=== PATIENT | male | born 1955 | race Caucasian/White ===

== ENCOUNTER 2021-02-06 10:06 | Emergency (ER) | payer MEDICARE ==
[2021-02-06] MEDS ORDERED: Lactated Ringers 1,000 ML IV SCH (11:15)
--- NOTE | 2021-02-06 11:25 | EDM.PDOC ---
ED HPI GENERAL MEDICAL PROBLEM - General Chief Complaint: Respiratory Problem Stated Complaint: MED[facility] Time Seen by Provider: 02/06/21 10:57 Source of Information: Reports: Patient, Old Records, RN Notes Reviewed History Limitations: Reports: No Limitations - History of Present Illness INITIAL COMMENTS - FREE TEXT/NARRATIVE: 65-year-old gentleman presents emergency department day complaint of shortness of breath that has been ongoing really for the last 2448 hrs. progressively gotten worse. He does have an extensive history over the last 2 months recently had bacterial pneumonia causing respiratory failure ventilated for 2 weeks ending up with sepsis he he recovered from that went to [facility] for rehab was there for about a week and then end up getting Covid about 5 6 weeks ago he has been vaccinated with [employer] Alberto 1 dose no booster shot given. States he recovered from that was at home not on oxygen soon to be doing okay he has noticed some weight gain. He did undergo cardiac catheterization does have coronary artery disease this was done while he was septic there is a plan for stenting in the future states he did have a myocardial infarction which is confirmed from the records from [facility]. He states over the last 24 hours shortness of breath has increased he has noticed some more leg edema as well. - Related Data Allergies Allergy/AdvReac Type Severity Reaction Status Date / Time No Known Allergies Allergy Verified 02/06/21 10:13 Home Meds: Home Meds . [Unable to Verify Home Med List] 02/06/21 [History] Past Medical History Cardiovascular History: Reports: CAD, Cardiomyopathy, High Cholesterol, Hypertension Respiratory History: Reports: Intubation, Previous Social & Family History - Tobacco Use Tobacco Use Status *Q: Former Tobacco User Used Tobacco, but Quit: Yes Month/Year Tobacco Last Used: 1991 ED ROS GENERAL - Review of Systems Review Of Systems: See Below Constitutional: Reports: Weakness, Fatigue. Denies: Fever, Chills Respiratory: Reports: Shortness of Breath. Denies: Cough, Sputum Cardiovascular: Reports: Dyspnea on Exertion, Edema. Denies: Chest Pain GI/Abdominal: Reports: No Symptoms ED EXAM, GENERAL - Physical Exam Exam: See Below Exam Limited By: No Limitations General Appearance: Alert, WD/WN, No Apparent Distress Respiratory/Chest: No Accessory Muscle Use, Chest Non-Tender, Decreased Breath Sounds, Crackles (Bases bilaterally) Cardiovascular: No Murmur, Tachycardia GI/Abdominal: Soft, Non-Tender Extremities: Pedal Edema #1 Interpretation EKG Date: 02/06/21 Time: 12:44 Rhythm: NSR [place]: Normal P-Wave: Present QRS: Normal ST-T: Normal QT: Normal Comparison: NA - No Prior EKG Course - Vital Signs Last Recorded V/S: Last Vital Signs Temp 98.2 F 02/06/21 18:39 Pulse 112 H 02/06/21 18:39 Resp 18 02/06/21 18:39 BP 135/78 02/06/21 18:39 Pulse Ox 96 02/06/21 18:39 - Orders/Labs/Meds Orders: Active Orders 24 hr Category Date Time Status CULTURE BLOOD [BC] Urgent Lab 02/06/21 11:20 Received CULTURE BLOOD [BC] Urgent Lab 02/06/21 11:30 Received Blood Culture x2 Reflex Set [OM.PC] Urgent Oth 02/06/21 11:11 Ordered Isolation [COMM] Stat Oth 02/06/21 10:22 Ordered EKG 12 Lead [EK] Stat Ther 02/06/21 11:18 Ordered Labs: Laboratory Tests 02/06/21 02/06/21 02/06/21 Range/Units 11:20 11:20 11:20 WBC 13.8 H (4.5-11.0) K/uL RBC 3.85 L (4.30-5.90) M/uL Hgb 11.5 L (12.0-15.0) g/dL Hct 34.9 L (40.0-54.0) % MCV 91 (80-98) fL MCH 30 (27-31) pg MCHC 33 (32-36) % Plt Count 241 (150-400) K/uL Neut % (Auto) 87.5 H (36-66) % Lymph % (Auto) 6.5 L (24-44) % Adams % (Auto) 5.2 (2-6) % Eos % (Auto) 0.7 L (2-4) % Baso % (Auto) 0.1 (0-1) % PT (9.2-10.6) sec INR APTT (21.4-31.8) sec D-Dimer, Quantitative (0.0-500.0) ng/mL Sodium 143 (140-148) mmol/L Potassium 4.3 (3.6-5.2) mmol/L Chloride 104 (100-108) mmol/L Carbon Dioxide 27 (21-32) mmol/L Anion Gap 12.4 (5.0-14.0) mmol/L BUN 22 H (7-18) mg/dL Creatinine 1.1 (0.8-1.3) mg/dL Est Cr Clr Drug Dosing 73.65 mL/min Estimated GFR (MDRD) > 60 (>60) Glucose 104 (74-106) mg/dL Lactic Acid 2.8 H (0.4-2.0) mmol/L Calcium 8.8 (8.5-10.1) mg/dL Total Bilirubin 0.9 (0.2-1.0) mg/dL AST 32 (15-37) U/L ALT 28 (12-78) U/L Alkaline Phosphatase 152 H (46-116) U/L Troponin I (0.000-0.056) ng/mL C-Reactive Protein 5.46 H (0.0-0.3) mg/dL NT-Pro-B Natriuret Pep (5-125) pg/mL Total Protein 7.0 (6.4-8.2) g/dL Albumin 2.9 L (3.4-5.0) g/dL Globulin 4.1 H (2.3-3.5) g/dL Albumin/Globulin Ratio 0.7 L (1.2-2.2) Procalcitonin ng/mL 02/06/21 02/06/21 02/06/21 Range/Units 11:20 11:20 11:30 WBC (4.5-11.0) K/uL RBC (4.30-5.90) M/uL Hgb (12.0-15.0) g/dL Hct (40.0-54.0) % MCV (80-98) fL MCH (27-31) pg MCHC (32-36) % Plt Count (150-400) K/uL Neut % (Auto) (36-66) % Lymph % (Auto) (24-44) % Adams % (Auto) (2-6) % Eos % (Auto) (2-4) % Baso % (Auto) (0-1) % PT (9.2-10.6) sec INR APTT (21.4-31.8) sec D-Dimer, Quantitative 2001. H (0.0-500.0) ng/mL Sodium (140-148) mmol/L Potassium (3.6-5.2) mmol/L Chloride (100-108) mmol/L Carbon Dioxide (21-32) mmol/L Anion Gap (5.0-14.0) mmol/L BUN (7-18) mg/dL Creatinine (0.8-1.3) mg/dL Est Cr Clr Drug Dosing mL/min Estimated GFR (MDRD) (>60) Glucose (74-106) mg/dL Lactic Acid (0.4-2.0) mmol/L Calcium (8.5-10.1) mg/dL Total Bilirubin (0.2-1.0) mg/dL AST (15-37) U/L ALT (12-78) U/L Alkaline Phosphatase (46-116) U/L Troponin I 0.352 H* (0.000-0.056) ng/mL C-Reactive Protein (0.0-0.3) mg/dL NT-Pro-B Natriuret Pep (5-125) pg/mL Total Protein (6.4-8.2) g/dL Albumin (3.4-5.0) g/dL Globulin (2.3-3.5) g/dL Albumin/Globulin Ratio (1.2-2.2) Procalcitonin < 0.05 ng/mL 02/06/21 02/06/21 02/06/21 Range/Units 11:30 14:59 15:06 WBC (4.5-11.0) K/uL RBC (4.30-5.90) M/uL Hgb (12.0-15.0) g/dL Hct (40.0-54.0) % MCV (80-98) fL MCH (27-31) pg MCHC (32-36) % Plt Count (150-400) K/uL Neut % (Auto) (36-66) % Lymph % (Auto) (24-44) % Adams % (Auto) (2-6) % Eos % (Auto) (2-4) % Baso % (Auto) (0-1) % PT (9.2-10.6) sec INR APTT (21.4-31.8) sec D-Dimer, Quantitative (0.0-500.0) ng/mL Sodium (140-148) mmol/L Potassium (3.6-5.2) mmol/L Chloride (100-108) mmol/L Carbon Dioxide (21-32) mmol/L Anion Gap (5.0-14.0) mmol/L BUN (7-18) mg/dL Creatinine (0.8-1.3) mg/dL Est Cr Clr Drug Dosing mL/min Estimated GFR (MDRD) (>60) Glucose (74-106) mg/dL Lactic Acid 3.7 H (0.4-2.0) mmol/L Calcium (8.5-10.1) mg/dL Total Bilirubin (0.2-1.0) mg/dL AST (15-37) U/L ALT (12-78) U/L Alkaline Phosphatase (46-116) U/L Troponin I 0.548 H* (0.000-0.056) ng/mL C-Reactive Protein (0.0-0.3) mg/dL NT-Pro-B Natriuret Pep 5196 H (5-125) pg/mL Total Protein (6.4-8.2) g/dL Albumin (3.4-5.0) g/dL Globulin (2.3-3.5) g/dL Albumin/Globulin Ratio (1.2-2.2) Procalcitonin ng/mL 02/06/21 Range/Units 15:48 WBC (4.5-11.0) K/uL RBC (4.30-5.90) M/uL Hgb (12.0-15.0) g/dL Hct (40.0-54.0) % MCV (80-98) fL MCH (27-31) pg MCHC (32-36) % Plt Count (150-400) K/uL Neut % (Auto) (36-66) % Lymph % (Auto) (24-44) % Adams % (Auto) (2-6) % Eos % (Auto) (2-4) % Baso % (Auto) (0-1) % PT 10.3 (9.2-10.6) sec INR 1.0 APTT 26.1 (21.4-31.8) sec D-Dimer, Quantitative (0.0-500.0) ng/mL Sodium (140-148) mmol/L Potassium (3.6-5.2) mmol/L Chloride (100-108) mmol/L Carbon Dioxide (21-32) mmol/L Anion Gap (5.0-14.0) mmol/L BUN (7-18) mg/dL Creatinine (0.8-1.3) mg/dL Est Cr Clr Drug Dosing mL/min Estimated GFR (MDRD) (>60) Glucose (74-106) mg/dL Lactic Acid (0.4-2.0) mmol/L Calcium (8.5-10.1) mg/dL Total Bilirubin (0.2-1.0) mg/dL AST (15-37) U/L ALT (12-78) U/L Alkaline Phosphatase (46-116) U/L Troponin I (0.000-0.056) ng/mL C-Reactive Protein (0.0-0.3) mg/dL NT-Pro-B Natriuret Pep (5-125) pg/mL Total Protein (6.4-8.2) g/dL Albumin (3.4-5.0) g/dL Globulin (2.3-3.5) g/dL Albumin/Globulin Ratio (1.2-2.2) Procalcitonin ng/mL Meds: Medications Discontinued Medications Generic Name Dose Route Start Last Admin Trade Name Freq PRN Reason Stop Dose Admin Aspirin 324 mg 02/06/21 15:48 02/06/21 16:02 Aspirin 81 Mg Tab.Chew PO 02/06/21 15:49 324 mg ONETIME ONE Administration Dexamethasone 4 mg 02/06/21 17:00 02/06/21 17:05 Dexamethasone 4 Mg/Ml Sdv IVPUSH 4 mg Q12H ISAAC Administration Furosemide 40 mg 02/06/21 12:58 02/06/21 13:37 Furosemide 40 Mg/4 Ml Vial IVPUSH 02/06/21 12:59 40 mg ONETIME ONE Administration Heparin Sodium (Porcine) 4,000 units 02/06/21 15:48 02/06/21 16:04 Heparin Sodium 5,000 Units/Ml Vial IVPUSH 02/06/21 15:49 4,000 units ONETIME ONE Administration Lactated Ringer's 1,000 mls @ 250 mls/hr 02/06/21 11:15 02/06/21 11:28 Ringers, Lactated IV 250 mls/hr ASDIRECTED ISAAC Administration Sodium Chloride 100 mls @ 4 mls/sec 02/06/21 13:00 02/06/21 13:31 Normal Saline IV 4 mls/sec ASDIRECTED ISAAC Administration Heparin Sodium/Dextrose 25,000 units in 500 mls @ 24.494 mls/hr 02/06/21 16:00 02/06/21 16:13 Heparin 25,000 Units In D5w 500 Ml IV 12 units/kg/hr TITRATE ISAAC 24.494 mls/hr Administration Protocol 12 UNITS/KG/HR Piperacillin Sod/Tazobactam 50 mls @ 100 mls/hr 02/06/21 16:00 02/06/21 16:07 Sod 3.375 gm/ Sodium Chloride IV 100 mls/hr Q6H ISAAC Administration Vancomycin HCl 2 gm/ Sodium 500 mls @ 250 mls/hr 02/06/21 17:15 02/06/21 17:20 Chloride IV 02/06/21 19:14 250 mls/hr ONETIME ONE Administration Iopamidol 100 ml 02/06/21 12:52 02/06/21 13:31 Iopamidol 755 Mg/Ml 100 Ml Bottle IV 02/06/21 12:53 100 ml . DIRECTED ONE Administration Ticagrelor 180 mg 02/06/21 15:48 02/06/21 16:03 Ticagrelor 90 Mg Tab PO 02/06/21 15:49 180 mg ONETIME ONE Administration Departure - Departure Time of Disposition: 06:31 Disposition: DC/Tfer to Acute Hospital 02 Condition: Fair Clinical Impression: Hypoxic, Non-ST elevation (NSTEMI) myocardial infarction Respiratory failure Qualifiers: Chronicity: acute Respiratory failure complication: hypoxia Qualified Code(s): J96.01 - Acute respiratory failure with hypoxia - Discharge Information Referrals: PCP,Unknown [Primary Care Provider] - Forms: ED Department Discharge Sepsis Event Note (ED) - Evaluation Sepsis Screening Result: No Definite Risk - Focused Exam Vital Signs: Vital Signs Temp Pulse Resp BP Pulse Ox 02/06/21 18:39 98.2 F 112 H 18 135/78 96 - My Orders Last 24 Hours: My Active Orders 02/06/21 10:22 Isolation [COMM] Stat 02/06/21 11:11 Blood Culture x2 Reflex Set [OM.PC] Urgent 02/06/21 11:18 EKG 12 Lead [EK] Stat 02/06/21 11:20 CULTURE BLOOD [BC] Urgent 02/06/21 11:30 CULTURE BLOOD [BC] Urgent - Assessment/Plan Last 24 Hours: My Active Orders 02/06/21 10:22 Isolation [COMM] Stat 02/06/21 11:11 Blood Culture x2 Reflex Set [OM.PC] Urgent 02/06/21 11:18 EKG 12 Lead [EK] Stat 02/06/21 11:20 CULTURE BLOOD [BC] Urgent 02/06/21 11:30 CULTURE BLOOD [BC] Urgent Plan: Assessment Acuity = acute Site and laterality = hypoxic with elevated troponin concern for non-ST elevation myocardial infarction as well as post Covid syndrome Etiology = unknown Manifestations = none Location of injury = Home Lab values = WBC elevated 13.8 consistent with leukocytosis, D-dimer elevated 2002 uncertain significance lactic acid initially 2.8 now elevated to 3.7 after 6 hours troponin initially 0.352 now elevated to 0.548 probably related to non- ST elevation myocardial infarction proBNP markedly elevated 5000 196 consistent with fluid overload congestive heart failure type pattern CRP elevated 5.[address] scan reveals no pulmonary embolism bilateral pleural effusions and multiple opacities throughout all lung koo consistent with Covid type pattern, EKG demonstrates a sinus rhythm there is no ST elevations or depressions blood cultures are pending Plan Initially called [facility] [phone] unable to accept, did call [facility] spoke with Di Low hospitalist on-call at [phone] kindly excepted the patient in transport will add vancomycin broaden the antibiotic coverage as well as dexamethasone given his post Covid history. He remains tachycardic he is not short of breath at rest he is never had chest pain here will get short of breath with any amount of exertion, we are currently on hold he will board in the emergency department until bed becomes available will be transported at that time. This note was dictated using [employer] voice recognition software please call with any questions on syntax or grammar.
--- NOTE | 2021-02-06 12:43 | CR ---
CHEST: Portable 02/06/2021 at 11:56 AM CLINICAL HISTORY:SOB COMPARISON:None FINDINGS: Patient has diffuse bilateral pneumonic infiltrates predominating in the lower lobes and perihilar regions. Heart size and pulmonary vascular normal. There are atherosclerotic changes in the aorta. Impression: Diffuse bilateral pulmonary infiltrates
[2021-02-06] MEDS ORDERED: Iopamidol 755 Mg/ML 100 ML Bottle IV ONE (12:52)
[2021-02-06] MEDS ORDERED: Furosemide 40 MG/4 ML VIAL IVPUSH ONE (12:58)
[2021-02-06] MEDS ORDERED: Sodium Chloride 0.9% 100 ML IV SCH (13:00)
--- NOTE | 2021-02-06 14:15 | CT ---
Ang Chest CLINICAL HISTORY: SOB, elevated d-dimer, tachycardia TECHNIQUE: Thin section axial contiguous tomographic sections were taken through the chest after bolus IV iodinated contrast administration. Coronal and sagittal images were reconstructed. Auto dosage reduction and iterative reconstruction techniques employed. FINDINGS: Patient has diffuse bilateral groundglass opacities with some small patchy areas of consolidation. There is a moderate right pleural effusion and a small left pleural effusion. No mediastinal mass is seen. There are scattered mildly prominent lymph nodes which are likely reactive. Pulmonary arteries are free of filling defects. There are atherosclerotic changes in the aorta. IMPRESSION: No evidence of pulmonary embolus Diffuse infiltrates bilaterally Bilateral pleural effusions right greater than left
[2021-02-06] MEDS ORDERED: Aspirin 81 MG Tab.Chew PO ONE (15:48)
[2021-02-06] MEDS ORDERED: Ticagrelor 90 MG Tab PO ONE (15:48)
[2021-02-06] MEDS ORDERED: Heparin Sodium 5,000 Units/ML Vial IVPUSH ONE (15:48)
[2021-02-06] MEDS ORDERED: Heparin Sodium/D5W 25,000 UNITS/500 ML BAG IV SCH (16:00)
[2021-02-06] MEDS ORDERED: Piperacillin/Tazobactam 3.375 GM in Sodium Chloride 0.9% 50 ML IV SCH (16:00)
[2021-02-06] MEDS ORDERED: Dexamethasone 4 MG/ML SDV IVPUSH SCH (17:00)
[2021-02-06] MEDS ORDERED: Vancomycin 2 GM in Sodium Chloride 0.9% 500 ML IV ONE (17:15)
== END 2021-02-06 20:14 ==
LOC: JP.ED 10:06
DX: J96.01 Acute respiratory failure with hypoxia (principal); I21.4 Non-ST elevation (NSTEMI) myocardial infarction; I10 Essential (primary) hypertension; I25.10 Atherosclerotic heart disease of native coronary artery without angina pectoris; Z87.891 Personal history of nicotine dependence
CPT/HCPCS: 36415; 71045; 71275; 80053; 83605; 83880; 84145; 84484; 85025; 85379; 85610; 85730; 86140; 87040; 93005; 96365; 96366; 96367; 96368; 96375; 99285; A9270; J1100; J1644; J1940; J2543; J3370; J7040; J7120; Q9967

== ENCOUNTER 2021-03-30 10:10 | Emergency (ER) | payer MEDICARE | END 2021-03-30 12:56 | disposition home or self-care (01) | LOC: JP.ED 10:10 | DX: I11.0 Hypertensive heart disease with heart failure (principal); I50.9 Heart failure, unspecified; I25.10 Atherosclerotic heart disease of native coronary artery without angina pectoris; E78.00 Pure hypercholesterolemia, unspecified; Z87.891 Personal history of nicotine dependence | CPT/HCPCS: 99284 ==

== ENCOUNTER 2022-11-07 09:25 | Emergency (ER) | payer MEDICARE ==
[2022-11-07 10:49] LABS: BASOPHILS ABSOLUTE AUTO 0.04 K/uL (0.00-0.10); BASOPHILS PERCENT AUTO 0.6 % (0.1-1.3); EOSINOPHILS PERCENT AUTO 0.3 % (0.0-5.4); HEMATOCRIT 38.5 % (38.4-49.7); HEMOGLOBIN 13.1 g/dL (12.9-16.9); IMMATURE GRAN PERCENT AUTO 0.3 % (0.0-0.7); LYMPHOCYTES ABSOLUTE AUTO 1.13 K/uL (0.8-3.3); LYMPHOCYTES PERCENT AUTO 16.4 % (11.4-47.7); MEAN CORPUSCULAR VOLUME 85.4 fL (81.4-99.0); MONOCYTES ABSOLUTE AUTO 0.47 K/uL (0.20-0.90); MONOCYTES PERCENT AUTO 6.8 % (3.3-12.6); NEUTROPHILS ABSOLUTE AUTO 5.23 K/uL (1.0-7.6); NEUTROPHILS PERCENT AUTO 75.6 % (40.0-78.1); PLATELET COUNT,PLT 236 K/uL (130-375); RED BLOOD CELL COUNT 4.51 M/uL (4.14-5.76); WHITE BLOOD CELL COUNT,WBC 6.9 K/uL (3.2-11.0)
[2022-11-07 10:51] LABS: EOSINOPHILS ABSOLUTE AUTO 0.02 K/uL (0.00-0.40); IMMATURE GRAN ABSOLUTE AUTO 0.02 K/uL (0.00-0.23)
[2022-11-07 11:12] LABS: CALCIUM 8.8 mg/dL (8.5-10.1); CREATININE 0.7 mg/dL (0.8-1.3); EST CRCL DRUG DOSING (CG) 109.32 mL/min; TROPONIN I HIGH SENSITIVITY 54.1 pg/mL (<=60.3)
[2022-11-07 11:14] LABS: ANION GAP 11.9 mmol/L (5.0-14.0); POTASSIUM,K 2.9 mmol/L (3.6-5.2)
[2022-11-07] MEDS ORDERED: Potassium Chloride 20 MEQ Tab.ER PO ONE (11:17)
[2022-11-07] MEDS ORDERED: hydrALAZINE 20 MG/ML SDV IVPUSH ONE (11:34)
[2022-11-07 14:03] LABS: CALCIUM 8.8 mg/dL (8.5-10.1); CREATININE 0.7 mg/dL (0.8-1.3); EST CRCL DRUG DOSING (CG) 109.32 mL/min; MAGNESIUM 2.2 mg/dL (1.8-2.4); POTASSIUM,K 3.1 mmol/L (3.6-5.2)
[2022-11-07 14:05] LABS: ANION GAP 17.1 mmol/L (5.0-14.0)
== END 2022-11-07 15:48 | disposition home or self-care (01) ==
LOC: JP.ED 09:25
DX: I10 Essential (primary) hypertension (principal); I25.10 Atherosclerotic heart disease of native coronary artery without angina pectoris; E78.00 Pure hypercholesterolemia, unspecified; K21.9 Gastro-esophageal reflux disease without esophagitis; Z86.16 Personal history of COVID-19; Z79.899 Other long term (current) drug therapy; Z79.82 Long term (current) use of aspirin; Z87.891 Personal history of nicotine dependence
CPT/HCPCS: 36415; 71046; 80048; 83735; 84484; 85025; 93005; 96374; 99284; A9270; J0360

== ENCOUNTER 2022-11-15 15:23 | Emergency (ER) | payer MEDICARE ==
[2022-11-15] MEDS ORDERED: Sodium Chloride 0.9% 10 ML Syringe FLUSH PRN (16:16)
[2022-11-15] MEDS ORDERED: Sodium Chloride 0.9% 500 ML IV SCH (16:30)
[2022-11-15 16:36] LABS: BASE EXCESS VENOUS 6.6 mm/L; BICARBONATE,VENOUS 30.8 mmol/L; CARBOXYHEMOGLOBIN 3.1 % (0.0-1.6); METHEMOGLOBIN 0.8 %; O2 SATURATION VENOUS 70.5; OXYHEMOGLOBIN 67.8 %; PCO2 VENOUS 43.7 mm/Hg; PH,VENOUS 7.463 (7.350-7.450); PO2 VENOUS 40.8 mm/Hg; TOTAL HEMOGLOBIN 12.7 g/dL (13.5-18.0)
[2022-11-15 16:37] LABS: BASOPHILS ABSOLUTE AUTO 0.05 K/uL (0.00-0.10); BASOPHILS PERCENT AUTO 0.7 % (0.1-1.3); EOSINOPHILS ABSOLUTE AUTO 0.13 K/uL (0.00-0.40); EOSINOPHILS PERCENT AUTO 1.8 % (0.0-5.4); HEMATOCRIT 36.8 % (38.4-49.7); HEMOGLOBIN 12.3 g/dL (12.9-16.9); IMMATURE GRAN PERCENT AUTO 0.3 % (0.0-0.7); LYMPHOCYTES ABSOLUTE AUTO 1.61 K/uL (0.8-3.3); LYMPHOCYTES PERCENT AUTO 21.8 % (11.4-47.7); MEAN CORPUSCULAR HEMOGLOBIN 29.3 pg (31.6-35.5); MEAN CORPUSCULAR HGB CONC 33.4 g/dL (31.6-35.5); MEAN CORPUSCULAR VOLUME 87.6 fL (81.4-99.0); MONOCYTES ABSOLUTE AUTO 0.61 K/uL (0.20-0.90); MONOCYTES PERCENT AUTO 8.2 % (3.3-12.6); NEUTROPHILS ABSOLUTE AUTO 4.98 K/uL (1.0-7.6); NEUTROPHILS PERCENT AUTO 67.2 % (40.0-78.1); PLATELET COUNT,PLT 200 K/uL (130-375); WHITE BLOOD CELL COUNT,WBC 7.4 K/uL (3.2-11.0)
[2022-11-15 16:38] LABS: IMMATURE GRAN ABSOLUTE AUTO 0.02 K/uL (0.00-0.23)
[2022-11-15 16:56] LABS: PROTHROMBIN TIME 10.5 sec (9.2-10.6)
[2022-11-15 17:10] LABS: A/G RATIO 0.8 (1.2-2.2); ALANINE AMINOTRANSFERASE,ALT 11 U/L (12-78); ALBUMIN 2.9 g/dL (3.4-5.0); ALKALINE PHOSPHATASE 102 U/L (46-116); ASPARTATE AMNIOTRANSFERASE,AST 14 U/L (15-37); BILIRUBIN TOTAL 1.2 mg/dL (0.2-1.0); BLOOD UREA NITROGEN,BUN 11 mg/dL (7-18); CALCIUM 8.8 mg/dL (8.5-10.1); CARBON DIOXIDE,CO2 32 mmol/L (21-32); CHLORIDE,CL 106 mmol/L (100-108); CREATININE 0.8 mg/dL (0.8-1.3); EST CRCL DRUG DOSING (CG) 98.49 mL/min; ESTIMATED GFR 96 mL/min (>60); GLUCOSE RANDOM 86 mg/dL (74-106); MAGNESIUM 1.7 mg/dL (1.8-2.4); POTASSIUM,K 3.1 mmol/L (3.6-5.2); PROTEIN TOTAL,TP 6.4 g/dL (6.4-8.2); SODIUM,NA 145 mmol/L (140-148); TROPONIN I HIGH SENSITIVITY 36.8 pg/mL (<=60.3)
[2022-11-15 17:13] LABS: ANION GAP 10.1 mmol/L (5.0-14.0)
[2022-11-15] MEDS ORDERED: Potassium Chloride 20 MEQ Tab.ER PO ONE (17:16)
[2022-11-15] MEDS ORDERED: Magnesium Oxide 400 MG Tab PO ONE (17:17)
[2022-11-15] MEDS ORDERED: Carvedilol 12.5 MG Tab PO ONE (18:08)
[2022-11-15] MEDS ORDERED: Losartan 25 MG Tab PO SCH (18:15)
[2022-11-15] MEDS ORDERED: Losartan 50 MG Tab ONE (18:34)
== END 2022-11-15 19:50 ==
LOC: JP.ED 15:23
DX: R41.82 Altered mental status, unspecified (principal); E87.6 Hypokalemia; I10 Essential (primary) hypertension; E83.42 Hypomagnesemia; I49.3 Ventricular premature depolarization; I25.10 Atherosclerotic heart disease of native coronary artery without angina pectoris; K21.9 Gastro-esophageal reflux disease without esophagitis; M19.90 Unspecified osteoarthritis, unspecified site; Z87.891 Personal history of nicotine dependence; Z79.82 Long term (current) use of aspirin; Z79.899 Other long term (current) drug therapy
CPT/HCPCS: 36415; 70450; 71045; 72125; 76377; 80053; 80143; 80179; 80307; 82550; 82803; 83735; 84484; 85025; 85610; 93005; 96360; 99285; A9270; J3490; J7030

== ENCOUNTER 2024-06-29 15:03 | Emergency (ER) | payer MEDICARE ==
[2024-06-29 15:34] LABS: BASOPHILS ABSOLUTE AUTO 0.04 K/uL (0.00-0.10); BASOPHILS PERCENT AUTO 0.5 % (0.1-1.3); EOSINOPHILS ABSOLUTE AUTO 0.09 K/uL (0.00-0.40); EOSINOPHILS PERCENT AUTO 1.1 % (0.0-5.4); HEMATOCRIT 35.3 % (38.4-49.7); HEMOGLOBIN 11.4 g/dL (12.9-16.9); IMMATURE GRAN ABSOLUTE AUTO 0.05 K/uL (0.00-0.23); IMMATURE GRAN PERCENT AUTO 0.6 % (0.0-0.7); MEAN CORPUSCULAR HEMOGLOBIN 28.7 pg (31.6-35.5); MEAN CORPUSCULAR HGB CONC 32.3 g/dL (31.6-35.5); MEAN CORPUSCULAR VOLUME 88.9 fL (81.4-99.0); MONOCYTES ABSOLUTE AUTO 0.59 K/uL (0.20-0.90); MONOCYTES PERCENT AUTO 7.2 % (3.3-12.6); NEUTROPHILS ABSOLUTE AUTO 6.05 K/uL (1.0-7.6); NEUTROPHILS PERCENT AUTO 73.6 % (40.0-78.1); PLATELET COUNT,PLT 298 K/uL (130-375); RED BLOOD CELL COUNT 3.97 M/uL (4.14-5.76); WHITE BLOOD CELL COUNT,WBC 8.2 K/uL (3.2-11.0)
[2024-06-29 15:56] LABS: A/G RATIO 0.8 (1.2-2.2); ALANINE AMINOTRANSFERASE,ALT 22 U/L (12-78); ALBUMIN 3.2 g/dL (3.4-5.0); ALKALINE PHOSPHATASE 141 U/L (46-116); ASPARTATE AMNIOTRANSFERASE,AST 17 U/L (15-37); BLOOD UREA NITROGEN,BUN 27 mg/dL (7-18); CALCIUM 9.2 mg/dL (8.5-10.1); CARBON DIOXIDE,CO2 24 mmol/L (21-32); CHLORIDE,CL 104 mmol/L (100-108); EST CRCL DRUG DOSING (CG) 37.72 mL/min; ESTIMATED GFR 35 mL/min (>60); GLUCOSE RANDOM 127 mg/dL (74-106); POTASSIUM,K 5.1 mmol/L (3.6-5.2); PROTEIN TOTAL,TP 7.2 g/dL (6.4-8.2); SODIUM,NA 138 mmol/L (140-148)
[2024-06-29 15:57] LABS: ANION GAP 15.1 mmol/L (5.0-14.0)
[2024-06-29 15:58] LABS: MAGNESIUM 2.3 mg/dL (1.8-2.4); TROPONIN I HIGH SENSITIVITY 17.3 pg/mL (<=60.3)
[2024-06-29] MEDS: Sodium Chloride 0.9% 1,000 ML IV ONE ×2 (16:02→17:06)
[2024-06-29 18:14] LABS: CALCIUM 8.7 mg/dL (8.5-10.1); CREATININE 1.6 mg/dL (0.8-1.3); EST CRCL DRUG DOSING (CG) 47.15 mL/min; POTASSIUM,K 5.4 mmol/L (3.6-5.2)
[2024-06-29 18:15] LABS: ANION GAP 15.4 mmol/L (5.0-14.0)
== END 2024-06-29 18:49 | disposition home or self-care (01) ==
LOC: JP.ED 15:03
DX: E86.0 Dehydration (principal); R79.1 Abnormal coagulation profile; I10 Essential (primary) hypertension; I25.2 Old myocardial infarction; I25.10 Atherosclerotic heart disease of native coronary artery without angina pectoris; E78.00 Pure hypercholesterolemia, unspecified; Z86.73 Personal history of transient ischemic attack (TIA), and cerebral infarction without residual deficits; Z95.5 Presence of coronary angioplasty implant and graft; Z87.891 Personal history of nicotine dependence; Z79.82 Long term (current) use of aspirin; Z79.899 Other long term (current) drug therapy
CPT/HCPCS: 36415; 70450; 71045; 80048; 80053; 83735; 84484; 85025; 85379; 93005; 96360; 96361; 99285; J7030